=== PATIENT | female | born 1935 | race Caucasian/White ===

== ENCOUNTER 2021-01-28 08:20 | Inpatient (IN) ==
--- NOTE | 2021-01-08 11:01 | PAT Medication Instructions ---
Medication Instructions Date of Service January 08, 2021 Home Medications cholecalciferol (vitamin D3) [Vitamin D3] 50 mcg PO QAM ibuprofen [Motrin] 400 mg PO Q6H PRN levothyroxine 112 mcg PO QAM losartan 50 mg PO QAM multivitamin 1 tab PO QAM pravastatin 40 mg PO HS tramadol 50 mg PO Q4H PRN ASK your surgeon for instructions ibuprofen [Motrin] 400 mg PO Q6H PRN DO NOT take the morning of surgery cholecalciferol (vitamin D3) [Vitamin D3] 50 mcg PO QAM losartan 50 mg PO QAM multivitamin 1 tab PO QAM Take morning of surgery With a small sip of water, OTHERWISE NOTHING TO EAT OR DRINK AFTER MIDNIGHT: levothyroxine 112 mcg PO QAM tramadol 50 mg PO Q4H PRN (if needed, may be taken up to four hours before surgery) Take evening before surgery pravastatin 40 mg PO HS tramadol 50 mg PO Q4H PRN (if needed) Other Notes If you have any questions please call us at [phone] or [phone] or [phone] or [phone]
--- NOTE | 2021-01-11 13:54 | Anesthesiology Consultation ---
Date of Service January 11, 2021 Assessment & Plan (1) Encounter for pre-operative examination: COVID screening: Per assessment on 01/11: Travel screen negative, no known COVID- 19 positive contacts or current COVID-19 related symptoms. Patient fully vaccinated. Surgeon arranging preop COVID testing (scheduled 01/24; [facility]). Awaiting results. Chart Review Chart Review: Acceptable Risk for Surgery and Patient seen in Pre Admission Testing Teaching & Discussion Pre-Anesthesia Teaching/Discussion Notes: Instructed NPO after midnight before surgery,except medications with 15 cc of water. Medication instructions provided according to the PAT guidelines. History Surgery Operation Date: 01/28/21 07:45 Proposed Procedures p L4-L5 Decompression and Fusion, Possible L5-S1, Spinal Cord Monitoring - Tavo Lockwood DO Height/Weight Height: 5 ft 2 in Weight: 72.8 kg Allergies Allergy/AdvReac Type Severity Reaction Status Date / Time codeine AdvReac Unknown "Wild" Verified 01/11/21 13:53 Medications Home Medications Medication Instructions Recorded Confirmed Last Taken cholecalciferol (vitamin D3) 50 mcg PO QAM 01/07/21 01/07/21 Unknown [Vitamin D3] ibuprofen [Motrin] 400 mg PO Q6H PRN 01/07/21 01/07/21 Unknown levothyroxine 112 mcg PO QAM 01/07/21 01/07/21 Unknown losartan 50 mg PO QAM 01/07/21 01/07/21 Unknown multivitamin 1 tab PO QAM 01/07/21 01/07/21 Unknown pravastatin 40 mg PO HS 01/07/21 01/07/21 Unknown tramadol 50 mg PO Q4H PRN 01/07/21 01/07/21 Unknown Past Medical History Medical History Hyperlipidemia Hypertension Hypothyroidism Right kidney mass "Benign" per U/S f/u by PCP Exercise / Class Metabolic Activity II 4-5 Yardwork/Stairs/Walk up hill (one flight of stairs (no chest pain, no sob)) Past Family History Family History Brother Family history of diabetes mellitus Past Surgical History Surgical History History of cholecystectomy History of colonoscopy History of dilatation and curettage History of hysterectomy + RSO History of left oophorectomy History of lung surgery Biopsy (benign) History of surgery Radiofrequency ablation (lumbar region) Hx of foot surgery R/L bunionectomy Past Anesthesia History No Hx of Anesthesia Complications and No Family Hx of Anesthesia Complications History of PONV No Hx of PONV and No Hx of Motion Sickness Social History Smoking Status: Former smoker Do You Dip or Chew Tobacco: No Smoking End Date: Quit 30 years ago Hx Alcohol Use: Yes Alcohol type: wine and other alcohol intake frequency: a few times a month Hx Substance Use: No Review of Systems No snoring. Patient denies chest pain, shortness of breath, dyspnea on exertion, fever, chills, cough, wheezing, palpitations. Physical Exam Vital Signs VITALS BP 148/84 P 70 TEMP 97.4 SP02 98%RA RESP 16 PHYSICAL Full cervical extension range of motion. Full TMJ range of motion. TMD 3 finger breaths Mallampati Score 3 Dentition: upper full dentures Lungs: clear throughout to auscultation Cardiac: regular rate and rhythm, no murmurs noted Spine: normal Carotid arteries: negative bruit Extremities: no edema Lab Results Anesthesia Preop Results Results Anesthesia Widget: WBC 9.08 K/uL (4.8-10.8) 01/11/21 Hgb 13.9 g/dL (12.0-16.0) 01/11/21 Hct 40.9 % (37-47) 01/11/21 Plt 303 K/uL (130-400) 01/11/21 Na 133 mmol/L (136-145) L 01/11/21 K 4.7 mmol/L (3.5-5.1) 01/11/21 Cl 100 mmol/L (98-107) 01/11/21 CO2 26 mmol/L (21-32) 01/11/21 BUN 13 mg/dl (7-18) 01/11/21 Creat 0.60 mg/dl (0.6-1.2) 01/11/21 Glucose Level 101 mg/dl (70-99) H 01/11/21 PT 9.6 Seconds (9.0-12.0) 01/11/21 PTT 29.9 Seconds (21.0-31.0) 01/11/21 INR 0.9 (0.9-1.1) 01/11/21 Urine Color Yellow 01/11/21 Urine Appearance Clear (Clear) 01/11/21 Urine pH 6.5 (4.5-7.5) 01/11/21 Urine Specific Sarah 1.007 (1.000-1.030) 01/11/21 Urine Protein Negative (Negative) 01/11/21 Urine Glucose (UA) Negative (Negative) 01/11/21 Urine Ketones Negative (Negative) 01/11/21 Urine Blood Negative (Negative) 01/11/21 Urine Nitrite Negative (Negative) 01/11/21 Urine Bilirubin Negative (Negative) 01/11/21 Urine Urobilinogen Negative (Negative) 01/11/21 Urine Leukocyte Esterase Negative (Negative) 01/11/21 Blood Type O Positive 01/11/21 Antibody Screen NEGATIVE 01/11/21 Testing Electrocardiogram Date: 01/11/21 Findings: + NSR @ (66) Chest X-Ray Date: 01/11/21 FINDINGS: The heart is the upper limits of normal in size. There is mild aortic tortuosity. There is a thoracolumbar scoliosis. Surgical clips project over the right hilar region. There is mild pulmonary reticulation, possibly chronic. There is no lobar consolidation. There is no overt failure. There are no pleural effusions. IMPRESSION: Mild pulmonary reticulation with a subpleural distribution. This may be chronic. No evidence of lobar consolidation. No cardiopulmonary complaints at PAT visit. Report to be forwarded to PCP for continuity of care.
[~2021-01-28 08:20] MED LIST: ACETAMINOPHEN 500 MG TAB PO SCH; CeleBREX 200 MG CAP PO SCH; GABAPENTIN 300 MG CAP PO SCH; LR 15ML/HR IV SCH; ceFAZolin 1000MG 1,000 MG/7.5 ML SYR IV SCH
[2021-01-28] MEDS ORDERED: ONDANSETRON INJ 2 MG/ML 2 ML VIAL ONE (08:32)
[2021-01-28] MEDS ORDERED: GLYCOPYRROLATE 0.2 MG/ML VIAL ONE (08:32)
[2021-01-28] MEDS ORDERED: LIDOCAINE 2% 2 ML VIAL/AMP(20MG/ML) INFIL ONE (08:32)
[2021-01-28] MEDS ORDERED: DEXAMETHASONE SOD INJ 4 MG/ML VIAL ONE (08:32)
[2021-01-28] MEDS ORDERED: PROPOFOL IV EMULSION 10 MG/ML 20 ML VIAL IV ONE (08:32)
[2021-01-28] MEDS ORDERED: fentaNYL citrate 100 MCG/2 ML VIAL ONE (08:32)
[2021-01-28] MEDS ORDERED: NEOSTIGMINE METHYLSULFATE 1 MG/ML 10ML VIAL ONE (08:32)
[2021-01-28] MEDS ORDERED: ePHEDrine sulfate 50 MG/ML AMP IV PRN (09:41)
[2021-01-28] MEDS ORDERED: PROMETHAZINE HCL 6.25 MG in SODIUM CHLORIDE 0.9% 50 ML IV PRN (09:41)
[2021-01-28] MEDS ORDERED: ONDANSETRON INJ 2 MG/ML 2 ML VIAL IV PRN ×2 (09:41→13:33)
[2021-01-28] MEDS ORDERED: ATROPINE SULFATE 0.1 MG/ML 10ML SYR IV PRN (09:41)
[2021-01-28] MEDS ORDERED: HYDROmorphone INJ 1 MG/ML SYRINGE IV PRN ×2 (09:41→13:33)
--- NOTE | 2021-01-28 09:42 | History & Physical Bridge Note ---
Date of Service January 28, 2021 History & Physical Bridge Note I have examined the patient, reviewed the History & Physical and in the interval since the performance of the History & Physical I have noted the following changes of clinical significance: no changes noted
--- NOTE | 2021-01-28 09:43 | History & Physical Report ---
Date of Service January 28, 2021 Assessment & Plan (1) Neurogenic claudication due to lumbar spinal stenosis: Admission and Anticipated Discharge Date Admission Date: L4-L5 decompression fusion, possible L5-S1 History of Present Illness Chief Complaint: Back and bilateral leg pain Primary Care Provider: Sandra Schwartz This is an 85-year-old female who presents with worsening back and bilateral leg pain. After failing course of nonoperative care she is here for surgical prevention. Allergies Allergy/AdvReac Type Severity Reaction Status Date / Time codeine AdvReac Unknown "Wild" Verified 01/28/21 08:39 Home Medications Medication Instructions Recorded Confirmed Type cholecalciferol (vitamin D3) 50 mcg PO QAM 01/07/21 01/28/21 History [Vitamin D3] ibuprofen [Motrin] 400 mg PO Q6H PRN 01/07/21 01/28/21 History levothyroxine 112 mcg PO QAM 01/07/21 01/28/21 History losartan 50 mg PO QAM 01/07/21 01/28/21 History multivitamin 1 tab PO QAM 01/07/21 01/28/21 History pravastatin 40 mg PO HS 01/07/21 01/28/21 History tramadol 50 mg PO Q4H PRN 01/07/21 01/28/21 History Past Med/Surg History Medical History Hyperlipidemia Hypertension Hypothyroidism Right kidney mass "Benign" per U/S f/u by PCP Surgical History History of cholecystectomy History of colonoscopy History of dilatation and curettage History of hysterectomy + RSO History of left oophorectomy History of lung surgery Biopsy (benign) History of surgery Radiofrequency ablation (lumbar region) Hx of foot surgery R/L bunionectomy Family History Brother Family history of diabetes mellitus Social History Smoking Status: Former smoker Smoking End Date: Quit 30 years ago; Second Hand Exposure: No; Do You Dip or Chew Tobacco: No; Hx Alcohol Use: Yes Alcohol type: wine and other Hx Substance Use: No Preferred Language: Kinyarwanda Communication Ability: Effective Head Charger Required: No Beliefs That Will Affect Care: None Current Living Situation: Spouse current occupational status: retired current occupation: RETIRED RN Other Information That Helps Us Care for You: No Feels Safe at Home: Yes Safety Concerns: Feels Safe At This Time Assistive Devices: Denture - Upper and Glasses Physical Exam Physical Exam: Patient is alert and oriented Heart regular in rhythm Lungs clear to auscultation Results & Data ([facility]) Vital Signs (Past 12 Hours) Vital Signs Temp Pulse Resp BP Pulse Ox 01/28/21 08:45 37.1 C 77 18 183/95 H 98
[2021-01-28] MEDS ORDERED: BUPIVACAINE/EPINEPHRINE 0.5% MPF 1:200,000 30 ML VIAL ONE (09:59)
[2021-01-28] MEDS ORDERED: FLOSEAL HEMOSTATIC MATRIX 10ML TOP ONE ×2 (11:12→12:05)
[2021-01-28] MEDS ORDERED: ROCURONIUM BROMIDE 10 MG/ML 5 ML VIAL IV ONE (11:52)
--- NOTE | 2021-01-28 12:09 | Operative Report ---
Post Operative Report Pre & Post Diagnosis Operation Date: 01/28/21 10:05 Pre-Op Diagnosis: Neurogenic claudication due to lumbar spinal stenosis L4-L5, L5-S1 Post-Op Diagnosis: Neurogenic claudication due to lumbar spinal stenosis L4-L5, L5-S1 I identified the patient and participated in the time-out.: Yes Procedure Operation Date: 01/28/21 10:05 Actual Procedures #1 lumbar decompression with bilateral medial facetectomies and foraminotomies L3-4 L4-5. #2 posterior spinal fusion L4-L5. #3 placement posterior instrumentation L4-5. #4 interbody fusion L4-L5. #5 placement peek cage 8 x 22 mm at L4-5. #6 placement locally harvested morselized autograft in the posterior gutters. #7 placement infuse collagen sponge, and master graft in the posterior gutters and I factor in the interbody space. Surgeon Tavo Lockwood, Fire Lookout Ana Maria Argueta Estimated Blood Loss 100 Findings Consistent with Post-Op Diagnosis Specimens None Indications This is an 85-year-old female who presents with above-mentioned diagnosis after failing course of nonoperative care she is here for the above-mentioned procedure. Description of Procedure Patient met with identified informed consent obtained. Patient was then taken to the operative suite underwent a patient placed in a prone position the [place] table top Salvatore frame. All bony prominences well-padded eyes inspected to ensure no external pressure placed upon the. This point the lumbar spine was prepped and draped in a sterile fashion. Sharp dissection with the assistance of Bovie cautery performed down to and exposing the lamina and transverse processes of L4 and L5. From caudal cephalad fashion complete laminectomy L4 partial laminectomy L3 was performed including bilateral medial facetectomies and foraminotomies addressing severe spinal stenosis. Pedicle screws were then placed in L4 and L5 bilaterally with assistance of fluoroscopy and appropriately sized natanael placed by way of a transforaminal portion right complete discectomy of L4-5 was performed endplates curetted to subcortical being bone and a 8 x 22 mm peek cage filled with I factor tapped in position. The rods were then locked in final position bilaterally. The transverse processes of L4 and L5 burred to subcortical bleeding bone. Infuse collagen sponge master graft and local autograft was placed in the posterior gutters. 15 round JONATHON drain inserted. The incision was then closed with 1 Vicryl the fascia 2-0 Vicryl subcutaneously and 4 Monocryl for final skin closure. Steri-Strip sterile dressings placed. Patient will continue PACU stable condition. Please note spinal cord monitoring was utilized at the procedure no changes noted. Lastly Ana Maria Argueta was present at the entire surgery involved the patient positioning complex portions of the surgery and final skin closure. Lastly spinal cord monitoring was utilized at the procedure no changes noted. I attest to the content of the Intraoperative Record and any orders documented therein. Any exceptions are noted below.
[2021-01-28] MEDS ORDERED: ePHEDrine sulfate 50 MG/ML SYR ONE (12:26)
[2021-01-28] MEDS ORDERED: PHENYLEPHRINE 100MCG/ML 5ML SYR ONE (12:26)
[2021-01-28] MEDS: fentaNYL citrate 100 MCG/2 ML VIAL IV PRN ×4 (12:27→12:42)
--- NOTE | 2021-01-28 12:39 | Anesthesiology Progress Note ---
Date of Service January 28, 2021 Anesthesia Post Procedure Vital Signs Vital Signs: Temp Pulse Pulse Resp BP Pulse Ox 01/28/21 12:21 36.7 C 90 19 148/96 H 100 01/28/21 08:45 37.1 C 77 18 183/95 H 98 Pain Intensity Left Lower Back: Pain Intensity: 7 Transfer of Care Handoff Completed per policy Notes Mental Status: alert / awake / arousable Patient Amnestic to Procedure: Yes Nausea / Vomiting: adequately controlled Pain: adequately controlled Airway Patency, RR, SpO2: stable & adequate BP & HR: stable & adequate Hydration State: stable & adequate Anesthetic Complications: no major complications apparent
--- NOTE | 2021-01-28 12:48 | Fluoroscopy Report ---
FL lumbar spine 2-3V CLINICAL HISTORY: L4-L5 DECOMP/FUSION COMPARISON STUDY: None. FLUOROSCOPY TIME: 19 seconds. FLUOROSCOPIC IMAGES: 2 FINDINGS: Fluoroscopy was provided during the L4-L5 discectomy with interbody spacer placement. Poste rior decompression is noted with bilateral pedicle screw fusion at L4 and L5. IMPRESSION: Fluoroscopy provided during L4-L5 discectomy, posterior decompression and bilateral pedi rossy screw fusion. ACT 112: Negative or not required by law. Electronically signed by: Tab Oliva M.D. 01/28/2021 12:47 PM
[2021-01-28] MEDS ORDERED: ALUMINUM/MAGNESIUM SUSP 30 ML UDC PO PRN (13:33)
[2021-01-28] MEDS ORDERED: ACETAMINOPHEN 500 MG TAB PO PRN (13:33)
[2021-01-28] MEDS ORDERED: FAMOTIDINE 20 MG TAB PO PRN (13:33)
[2021-01-28] MEDS ORDERED: MAGNESIUM HYDROXIDE SUSP 30 ML UDC PO PRN (13:33)
[2021-01-28] MEDS ORDERED: SOD PHOSPHATE/SOD BIPHOSPHATE ENEMA 132 ML BTL PR PRN (13:33)
[2021-01-28] MEDS ORDERED: LORazepam 0.5 MG/1 ML VIAL IV PRN (13:33)
[2021-01-28] MEDS ORDERED: NALOXONE HCL 0.4 MG/1 ML VIAL/CARP IV PRN (13:33)
[2021-01-28] MEDS ORDERED: LORazepam 0.5 MG TAB PO PRN (13:33)
[2021-01-28] MEDS ORDERED: diphenhydrAMINE Capsule 25 MG CAP PO PRN (13:33)
[2021-01-28] MEDS ORDERED: HYDROmorphone INJ 0.5 MG/0.5 ML SYR IV PRN (13:33)
[2021-01-28] MEDS ORDERED: ACETAMINOPHEN 1,000 MG/100 ML VIAL IV PRN (13:33)
[2021-01-28] MEDS ORDERED: DO NOT ADMINISTER FLU VACCINE PRN (13:33)
[2021-01-28] MEDS ORDERED: PROMETHAZINE HCL 12.5 MG in SODIUM CHLORIDE 0.9% 50 ML IV PRN (13:33)
[2021-01-28] MEDS ORDERED: hydrOXYzine HCl 25 MG TAB PO PRN (13:33)
[2021-01-28] MEDS ORDERED: METOCLOPRAMIDE HCL INJ 5 MG/ML 2 ML VIAL IV PRN (13:33)
[2021-01-28] MEDS ORDERED: DO NOT ADMINISTER PNEUMOCOCCAL VACCINE PRN (13:33)
[2021-01-28] MEDS: SODIUM CHLORIDE 0.9% 1000ML 1,000 ML IV SCH (14:29)
[2021-01-28] MEDS: oxyCODONE HCL IR 5 MG TAB (IMMEDIATE RELEASE) PO PRN (16:23)
--- NOTE | 2021-01-28 16:27 | Hospitalist Consultation ---
Date of Consultation January 28, 2021 Assessment & Plan (1) Neurogenic claudication due to lumbar spinal stenosis: - POD#0 L4-L5 decompression and fusion by Dr. Lockwood - activity and wound care orders as per ortho - pain control with bowel regimen - PT/OT - monitor H/H for acute blood loss anemia and transfuse blood products PRN -EBL 100 cc (2) Hypertension: -BP controlled, continue losartan (3) Hypothyroidism: -Continue levothyroxine (4) Hyperlipidemia: -Continue statin (5) DVT prophylaxis: -Teds/SCDs as per spine Ortho Thank you for this consultation. We will follow the patient with you during their hospital stay. You can reach a member of the [facility]ist Team 09/03 via the [facility] role in [place] [employer]. Supervising Physician Co-Signing Physician Notes History and physical exam performed by me as detailed by Sherley ROD 85-year-old female with PMH HTN, hypothyroidism, hyperlipidemia who is status post L4-L5 decompression and fusion today by Dr. Lockwood Patient reports only surgical site pain at this time Had some nausea earlier but currently resolved No abdominal pain. Yet to pass flatus or move bowel. Physical exam notable for elderly woman in no distress, Drain in place with serosanguinous drain at surgical site. - Neurogenic claudication due to lumbar spinal stenosis L4-L5, L5-S1 S/P Lumbar decompression L3-4, L4-5 Check Hb in AM Pain control and activity per Primary Surgeon Keep deshpande overnight Resume home losartan in AM Continue levothyroxine Agree with other plans as detailed by Sherley ROD History of Present Illness Reason for Consultation: Postop medical management Requesting Physician: Dr. Lockwood Attending Physician: Dr. Patrick History of Present Illness 85-year-old female with PMH HTN, hypothyroidism, hyperlipidemia, other problems listed below who is status post L4-L5 decompression and fusion today by Dr. Lockwood. Postoperatively, the patient is doing well. She reports the pain is well controlled. She denies numbness, tingling, weakness to lower extremities. No chest pain or shortness of breath. Denies lightheadedness and dizziness. Reports some mild nausea however no abdominal pain or vomiting. Deshpande catheter is in place draining clear yellow urine. Allergies Allergy/AdvReac Type Severity Reaction Status Date / Time codeine AdvReac Unknown "Wild" Verified 01/28/21 08:39 Home Medications Medication Instructions Recorded Confirmed Type cholecalciferol (vitamin D3) 50 mcg PO QAM 01/07/21 01/28/21 History [Vitamin D3] ibuprofen [Motrin] 400 mg PO Q6H PRN 01/07/21 01/28/21 History levothyroxine 112 mcg PO QAM 01/07/21 01/28/21 History losartan 50 mg PO QAM 01/07/21 01/28/21 History multivitamin 1 tab PO QAM 01/07/21 01/28/21 History pravastatin 40 mg PO HS 01/07/21 01/28/21 History tramadol 50 mg PO Q4H PRN 01/07/21 01/28/21 History Patient History Medical History Hyperlipidemia Hypertension Hypothyroidism Right kidney mass "Benign" per U/S f/u by PCP Surgical History History of cholecystectomy History of colonoscopy History of dilatation and curettage History of hysterectomy + RSO History of left oophorectomy History of lung surgery Biopsy (benign) History of surgery Radiofrequency ablation (lumbar region) Hx of foot surgery R/L bunionectomy Family History Brother Family history of diabetes mellitus Social History Smoking Status: Former smoker Smoking End Date: Quit 30 years ago; Second Hand Exposure: No; Do You Dip or Chew Tobacco: No; Hx Alcohol Use: Yes Alcohol type: wine and other Hx Substance Use: No Preferred Language: Bulgarian Communication Ability: Effective Building Custodian Required: No Beliefs That Will Affect Care: None Current Living Situation: Spouse current occupational status: retired current occupation: RETIRED RN Other Information That Helps Us Care for You: No Feels Safe at Home: Yes Safety Concerns: Feels Safe At This Time Assistive Devices: Walker Review of Systems Review of Systems: ROS per HPI, all other systems reviewed and negative Physical Exam Constitutional: WD/WN, vitals as above Eyes: PERRL, conjunctivae normal, anicteric sclerae ENMT: external ear and nose normal, oropharynx normal Respiratory: normal respiratory effort, lungs clear to auscultation Cardiovascular: Rate/Rhythm: regular rate and regular rhythm Vessels: normal peripheral pulses Extremities: no edema Gastrointestinal (Abdomen): normal bowel sounds, soft, nontender, no hepatosplenomegaly Musculoskeletal: no cyanosis or clubbing, extremities motor strength 5/5 S/p back surgery, pedal pushes and pulls strong bilaterally, drain in place draining bloody drainage Skin: no rashes, warm and dry Neurologic: PERRL, EOMI, accommodation nl, no face palsy, no dysarthria Psychiatric: A+Ox3, euthymic affect Results & Data Results & Data ([facility]) Vital Signs (Past 12 Hours) Vital Signs Temp Pulse Pulse Pulse Resp BP Pulse Ox 01/28/21 16:17 36.3 C L 82 18 118/74 95 01/28/21 15:18 36.3 C L 78 16 108/82 98 01/28/21 14:30 36.3 C L 70 16 122/76 100 01/28/21 13:40 36.5 C 64 16 119/72 98 01/28/21 13:35 36.4 C L 55 L 16 121/72 2 L 01/28/21 13:00 36.2 C L 56 L 19 117/62 96 01/28/21 12:50 57 L 12 122/65 97 01/28/21 12:40 58 L 17 125/66 99 01/28/21 12:30 67 18 128/73 100 01/28/21 12:21 36.7 C 90 19 148/96 H 100 01/28/21 08:45 37.1 C 77 18 183/95 H 98
[2021-01-28] MEDS: ceFAZolin 1000MG 1,000 MG/7.5 ML SYR IV SCH (17:16)
[2021-01-28] MEDS: DOCUSATE SODIUM/SENNA 50/8.6MG TAB PO SCH (21:42)
[2021-01-28] MEDS: PRAVASTATIN SOD 40 MG TAB PO SCH (21:42)
[2021-01-29] MEDS: SODIUM CHLORIDE 0.9% 1000ML 1,000 ML IV SCH (00:46)
[2021-01-29] MEDS: oxyCODONE HCL IR 5 MG TAB (IMMEDIATE RELEASE) PO PRN ×2 (00:47→18:38)
[2021-01-29] MEDS: ceFAZolin 1000MG 1,000 MG/7.5 ML SYR IV SCH (02:17)
[2021-01-29 06:08] LABS: Basophils # (auto) 0.01 K/uL (0-0.2); Basophils % (auto) 0.1 %; Eosinophils # (auto) 0.02 K/uL (0-0.5); Eosinophils % (auto) 0.1 %; Hematocrit (blood only) 32.9 % (37-47); Immature Granulocytes # (auto) 0.05 K/uL (0.00-0.02); Immature Granulocytes % (auto) 0.4 %; Lymphocytes % (auto) 12.1 %; Mean Corpuscular Hemoglobin 28.1 pg (25-34); Mean Corpuscular Hgb Conc 33.4 g/dL (32-36); Mean Corpuscular Volume 84.1 fL (80-100); Mean Platelet Volume 9.5 fL (7.4-10.4); Monocytes # (auto) 1.66 K/uL (0.11-0.59); Monocytes % (auto) 11.9 %; Neutrophils # (auto) 10.56 K/uL (1.4-6.5); Neutrophils % (auto) 75.4 %; Platelet Count 235 K/uL (130-400); RDW Coefficient of Variation 13.5 % (11.5-14.5); Red Blood Count 3.91 M/uL (4.2-5.4)
[2021-01-29] MEDS: LEVOTHYROXINE SODIUM 112 MCG TABLET PO SCH (06:11)
[2021-01-29] MEDS: POLYETHYLENE (MIRALAX) 17 GM PACK PO SCH ×4 (06:13→23:59)
[2021-01-29 06:41] LABS: BUN Creatinine Ratio 18.4 (10-20); Calcium 8.1 mg/dl (8.5-10.1); Creatinine Clr Calc Pharmacy 60.2 ml/min; Est GFR (Non-African American) 81.9 ml/min; Potassium 4.4 mmol/L (3.5-5.1)
[2021-01-29] MEDS: ONDANSETRON 4 MG OD TAB PO PRN (07:51)
[2021-01-29] MEDS: CHOLECALCIFEROL 1,000 UNITS 25 MCG TAB PO SCH (08:37)
[2021-01-29] MEDS: LOSARTAN POTASSIUM 50 MG TAB PO SCH (08:38)
[2021-01-29] MEDS: MULTIVITAMIN TAB PO SCH (08:38)
[2021-01-29] MEDS: dexAMETHasone 6 MG in SYRINGE 0 ML IV SCH (10:30)
--- NOTE | 2021-01-29 11:30 | Hospitalist Progress Note ---
Date of Service January 29, 2021 Assessment & Plan (1) Neurogenic claudication due to lumbar spinal stenosis: Neurogenic claudication due to lumbar spinal stenosis L4-L5, L5-S1 S/P Lumbar decompression L3-4, L4-5 Pain control and activity per Primary Surgeon Remove Bauer Hemoglobin is 11 today [preop was 13.9] this may be related to blood loss anemia versus dilutional. Monitor hemoglobin Leukocytosis today with WBC of 14. This may be reactive. Monitor PT/OT Antiemetic as needed (2) Hypertension: BP elevated this morning Continue losartan (3) Hypothyroidism: Continue levothyroxine (4) Hyperlipidemia: Continue statin (5) DVT prophylaxis: Teds/SCDs Admission and Anticipated Discharge Date Admission Date: January 28, 2021 Subjective 85-year-old female with PMH HTN, hypothyroidism, hyperlipidemia who is status post L4-L5 decompression and fusion by Dr. Lockwood Patient seen and examined. Reports nausea and an episode of vomiting this morning. Denies any abdominal pain. Yet to move bowels. Reports some pain at surgical site but states that this is controlled. Denies other complaints Review of Systems Review of Systems: All systems reviewed & are unremarkable except as noted in Subjective Physical Exam Constitutional: + well hydrated; no acute distress Elderly woman Eyes: PERRL, conjunctivae normal, anicteric sclerae ENMT: external ear and nose normal, oropharynx normal Respiratory: normal respiratory effort, lungs clear to auscultation Cardiovascular: Rate/Rhythm: regular rate and regular rhythm S1-S2 No pedal edema Gastrointestinal (Abdomen): normal bowel sounds, soft, nontender, no hepatosplenomegaly Musculoskeletal: Clean dressing over surgical site Neurologic: PERRL, EOMI, accommodation nl, no face palsy, no dysarthria Psychiatric: A+Ox3, euthymic affect Results & Data Results & Data ([facility]) Vital Signs (Past 12 Hours) Vital Signs Temp Pulse Resp BP Pulse Ox 01/29/21 07:49 109 H 154/89 H 01/29/21 05:59 36.4 C L 67 16 104/62 95 01/29/21 04:45 111/63 Laboratory Results Abnormal lab results 01/29/21 01/29/21 Range/Units 05:42 05:42 WBC 14.00 H (4.8-10.8) K/uL RBC 3.91 L (4.2-5.4) M/uL Hgb 11.0 L (12.0-16.0) g/dL Hct 32.9 L (37-47) % Neut # (Auto) 10.56 H (1.4-6.5) K/uL [place] # (Auto) 1.66 H (0.11-0.59) K/uL Immature Gran # (Auto) 0.05 H (0.00-0.02) K/uL Sodium 134 L (136-145) mmol/L Glucose 111 H (70-99) mg/dl Calcium 8.1 L (8.5-10.1) mg/dl
--- NOTE | 2021-01-29 11:48 | Orthopedic Progress Note ---
Date of Service January 29, 2021 Assessment & Plan (1) Neurogenic claudication due to lumbar spinal stenosis: Admission and Anticipated Discharge Date Admission Date: January 28, 2021 At this time we will continue to advance her antinausea medications and physical therapy. We will assess her progress over the next few days hopefully discharge home. Subjective Patient's back pain is controlled leg pain improved. She is struggling with nausea. Physical Exam Physical Exam: On exam she is in bed she has good strength testing. Results & Data ([facility]) Vital Signs (Past 12 Hours) Vital Signs Temp Pulse Resp BP Pulse Ox 01/29/21 07:49 109 H 154/89 H 01/29/21 05:59 36.4 C L 67 16 104/62 95 01/29/21 04:45 111/63
[2021-01-29] MEDS: DOCUSATE SODIUM/SENNA 50/8.6MG TAB PO SCH (20:02)
[2021-01-29] MEDS: PRAVASTATIN SOD 40 MG TAB PO SCH (20:02)
[2021-01-29] MEDS: traMADol HCL 50 MG TABLET PO PRN (23:53)
[2021-01-30] MEDS: traMADol HCL 50 MG TABLET PO PRN ×2 (05:23→13:34)
[2021-01-30] MEDS: POLYETHYLENE (MIRALAX) 17 GM PACK PO SCH ×2 (05:23→13:34)
[2021-01-30] MEDS: LEVOTHYROXINE SODIUM 112 MCG TABLET PO SCH (05:27)
[2021-01-30 06:18] LABS: Hematocrit (blood only) 33.4 % (37-47); Hemoglobin 10.9 g/dL (12.0-16.0); Mean Corpuscular Hgb Conc 32.6 g/dL (32-36); Mean Corpuscular Volume 85.9 fL (80-100); Mean Platelet Volume 9.9 fL (7.4-10.4); Platelet Count 267 K/uL (130-400); RDW Coefficient of Variation 13.6 % (11.5-14.5); RDW Standard Deviation 43.2 fL (36.4-46.3); Red Blood Count 3.89 M/uL (4.2-5.4); White Blood Count 11.21 K/uL (4.8-10.8)
[2021-01-30] MEDS: dexAMETHasone 6 MG in SYRINGE 0 ML IV SCH (07:26)
[2021-01-30] MEDS: CHOLECALCIFEROL 1,000 UNITS 25 MCG TAB PO SCH (08:48)
[2021-01-30] MEDS: LOSARTAN POTASSIUM 50 MG TAB PO SCH (08:48)
[2021-01-30] MEDS: MULTIVITAMIN TAB PO SCH (08:48)
--- NOTE | 2021-01-30 09:57 | Hospitalist Progress Note ---
Date of Service January 30, 2021 Assessment & Plan (1) Neurogenic claudication due to lumbar spinal stenosis: Neurogenic claudication due to lumbar spinal stenosis L4-L5, L5-S1 S/P Lumbar decompression L3-4, L4-5 Pain control and activity per Primary Surgeon Currently somewhat controlled on Tramadol 100mg PO q4h. Gave her Tylenol 1000mg PO x one dose now. Next Tramadol dose is due in 45 minutes. Cont dexamethasone daily. Advised patient to monitor for constipation. (2) Hypertension: At goal, cont home losartan. (3) Hypothyroidism: Continue levothyroxine per home regimen. (4) Hyperlipidemia: Continue statin per home regimen. (5) DVT prophylaxis: Teds/SCDs Full Code Dispo-per Orthopedics. Thank you for this consultation. Breanna You [facility] and [facility]ticipated Discharge Date Admission Date: January 28, 2021 Subjective 85 yo F POD 2 s/p L4-5 decompression and fusion by Dr. Lockwood. She reports pain is 4/10 after Tramadol started overnight at 100mg dose. She was having nausea last evening which is resolved and was thought secondary to the oxycodone. She agreed to try some additional Tylenol now. She denies nausea, numbess in legs, chest pain, SOB or other issues at this time. Review of Systems Review of Systems: All systems reviewed & are unremarkable except as noted in Subjective Physical Exam Physical Exam: CONSTITUTIONAL: WNWD, vitals as above, generally well- appearing EYES: normal conjunctivae, no scleral icterus ENT: external ear and nose normal, MMM RESPIRATORY: clear to auscultation bilaterally, no crackles, rales or wheezes, normal respiratory effort CARDIOVASCULAR: regular rate and rhythm, S1 and 2 heard without murmurs, gallops or rubs, no JVD, no peripheral edema GASTROINTESTINAL: soft, nontender, nondistended. MUSCULOSKELETAL: strength 5/5 throughout, head is normocephalic and atraumatic SKIN: warm and dry, lower back surgical site is covered with gauze that is c/d/i. Drain in place with serosanguinous/bloody drainage. NEUROLOGIC: CN 2-12 grossly intact, no sensory deficit, normal cognition, normal speech PSYCHIATRIC: alert cooperative and oriented to person, place and time. Results & Data Results & Data ([facility]) Vital Signs (Past 12 Hours) Vital Signs Temp Pulse Resp BP Pulse Ox 01/30/21 07:31 36.4 C L 84 18 133/83 99 01/29/21 22:42 36.6 C 77 16 109/65 97 Laboratory Results Short CBC 01/30/21 Range/Units 05:35 WBC 11.21 H (4.8-10.8) K/uL Hgb 10.9 L (12.0-16.0) g/dL Hct 33.4 L (37-47) % Plt Count 267 (130-400) K/uL Medications Administered Current Inpatient Medications Acetaminophen (Acetaminophen 500 Mg Tab) 1,000 mg PO Q8H PRN PRN Reason: MILD Pain Scale 1,2,3 & Pre PT Stop: 02/27/21 13:32 Last Admin: 01/30/21 08:50 Dose: 1,000 mg Documented by: Al Hydrox/Mg Hydrox/Simethicone (Aluminum/Magnesium Susp 30 Ml Udc) 30 ml PO Q6H PRN PRN Reason: Dyspepsia Stop: 02/27/21 13:32 Bisacodyl (Bisacodyl 10 Mg Supp) 10 mg [place] DAILY PRN PRN Reason: Constipation Stop: 03/01/21 12:09 Diphenhydramine HCl (Diphenhydramine Capsule 25 Mg Cap) 25 mg PO Q6H PRN PRN Reason: Allergic Rhinitis/Insomnia Stop: 02/27/21 13:32 Famotidine (Famotidine 20 Mg Tab) 20 mg PO Q12H PRN PRN Reason: Dyspepsia Stop: 02/27/21 13:32 Last Admin: 01/29/21 08:38 Dose: 20 mg Documented by: Hydromorphone HCl (Hydromorphone Inj 0.5 Mg/0.5 Ml Syr) 0.5 mg IV Q3H PRN PRN Reason: MOD pain (scale 4-6) & Pre PT Stop: 02/11/21 13:32 Hydromorphone HCl (Hydromorphone Inj 1 Mg/Ml Syringe) 1 mg IV Q3H PRN PRN Reason: severe pain (scale 7-10) Stop: 02/11/21 13:32 Last Admin: 01/29/21 03:38 Dose: 1 mg Documented by: Hydroxyzine HCl (Hydroxyzine Hcl 25 Mg Tab) 25 mg PO Q8H PRN PRN Reason: Anxiety Stop: 02/27/21 13:32 Promethazine HCl 12.5 mg/ (Sodium Chloride) 50.5 mls @ 202 mls/hr IV Q6H PRN PRN Reason: Nausea &/or Vomiting Stop: 02/27/21 13:32 Lorazepam (Ativan) 0.5 mg in 1 mls @ 1 mls/min IV Q8H PRN PRN Reason: Sedation/Anxiety Stop: 02/27/21 13:32 Dexamethasone 6 mg/ Syringe 1.5 mls @ 1 mls/min IV DAILY SARAH Stop: 02/28/21 09:59 Last Admin: 01/30/21 07:26 Dose: 1 mls/min Documented by: Influenza Virus Vaccine Quadrival (Do Not Administer Flu Vaccine) 1 ea N/A PRN PRN PRN Reason: Notification Stop: 02/27/21 13:32 Levothyroxine Sodium (Levothyroxine Sodium 112 Mcg Tablet) 112 mcg PO DAILYBB [facility] Stop: 02/28/21 06:29 Last Admin: 01/30/21 05:27 Dose: 112 mcg Documented by: Lorazepam (Lorazepam 0.5 Mg Tab) 0.5 mg PO Q8H PRN PRN Reason: sedation/anxiety Stop: 02/27/21 13:32 Losartan Potassium (Losartan Potassium 50 Mg Tab) 50 mg PO QAM [facility] Stop: 02/28/21 08:59 Last Admin: 01/30/21 08:48 Dose: 50 mg Documented by: Magnesium Hydroxide (Magnesium Hydroxide Susp 30 Ml Udc) 30 ml PO Q24H PRN PRN Reason: Constipation Stop: 02/27/21 13:32 Metoclopramide HCl (Metoclopramide Hcl Inj 5 Mg/Ml 2 Ml Vial) 10 mg IV Q6H PRN PRN Reason: Nausea &/or Vomiting Stop: 02/27/21 13:32 Multivitamins (Multivitamin Tab) 1 tab PO QAM [facility] Stop: 02/28/21 08:59 Last Admin: 01/30/21 08:48 Dose: 1 tab Documented by: Naloxone HCl (Naloxone Hcl 0.4 Mg/1 Ml Vial/Carp) 0.1 mg IV Q5M PRN PRN Reason: Oversedation/respiratory dep Stop: 02/27/21 13:32 Ondansetron HCl (Ondansetron Inj 2 Mg/Ml 2 Ml Vial) 4 mg IV Q6H PRN PRN Reason: Nausea &/or Vomiting Stop: 02/27/21 13:32 Last Admin: 01/28/21 20:12 Dose: 4 mg Documented by: Ondansetron HCl (Ondansetron 4 Mg Od Tab) 4 mg PO Q6H PRN PRN Reason: Nausea Stop: 02/27/21 13:32 Last Admin: 01/29/21 07:51 Dose: 4 mg Documented by: Oxycodone HCl (Oxycodone Hcl Ir 5 Mg Tab (Immediate Release)) 5 - 10 mg PO Q4H PRN PRN Reason: Pain & Pre PT Stop: 02/11/21 13:32 Last Admin: 01/29/21 18:38 Dose: 10 mg Documented by: Pneumococcal Polyvalent Vaccine (Do Not Administer Pneumococcal Vaccine) 1 ea N/A PRN PRN PRN Reason: Notification Stop: 02/27/21 13:32 Polyethylene Glycol (Polyethylene (Miralax) 17 Gm Pack) 17 gm PO Q6 SARAH Stop: 02/28/21 05:59 Last Admin: 01/30/21 05:23 Dose: 17 gm Documented by: Pravastatin Sodium (Pravastatin Sod 40 Mg Tab) 40 mg PO HS [facility] Stop: 02/27/21 20:59 Last Admin: 01/29/21 20:02 Dose: 40 mg Documented by: Senna/Docusate Sodium (Docusate Sodium/Senna 50/8.6mg Tab) 2 tab PO HS [facility] Stop: 02/27/21 20:59 Last Admin: 01/29/21 20:02 Dose: 2 tab Documented by: Sodium Biphosphate/Sodium Phosphate (Sod Phosphate/Sod Biphosphate Enema 132 Ml Btl) 132 ml [place] ONE PRN PRN Reason: Constipation Stop: 02/27/21 13:32 Tramadol HCl (Tramadol Hcl 50 Mg Tablet) 50 - 100 mg PO Q4H PRN PRN Reason: Moderate-Severe pain & Pre PT Stop: 02/27/21 13:32 Last Admin: 01/30/21 05:23 Dose: 100 mg Documented by: Vitamin D (Cholecalciferol 1,000 Units 25 Mcg Tab) 2,000 units PO QAM SARAH Stop: 02/28/21 08:59 Last Admin: 01/30/21 08:48 Dose: 2,000 units Documented by:
[2021-01-30] MEDS ORDERED: bisacodyL 10 MG SUPP PR PRN (12:10)
--- NOTE | 2021-01-30 13:04 | Orthopedic Progress Note ---
Date of Service January 30, 2021 Assessment & Plan (1) Neurogenic claudication due to lumbar spinal stenosis: Admission and Anticipated Discharge Date Admission Date: January 28, 2021 This time we will continue physical therapy monitor JONATHON output possible discharge home tomorrow. Subjective Back pain controlled leg symptoms markedly improved. Nausea improved. Physical Exam Physical Exam: Patient is in the chair at the bedside. Is good strength testing. Appears comfortable. Results & Data ([facility]) Vital Signs (Past 12 Hours) Vital Signs Temp Pulse Resp BP Pulse Ox 01/30/21 07:31 36.4 C L 84 18 133/83 99
[2021-01-30] MEDS: PRAVASTATIN SOD 40 MG TAB PO SCH (20:31)
[2021-01-30] MEDS: DOCUSATE SODIUM/SENNA 50/8.6MG TAB PO SCH (20:31)
[2021-01-30] MEDS: oxyCODONE HCL IR 5 MG TAB (IMMEDIATE RELEASE) PO PRN (22:39)
[2021-01-31] MEDS: oxyCODONE HCL IR 5 MG TAB (IMMEDIATE RELEASE) PO PRN (03:42)
[2021-01-31] MEDS: LEVOTHYROXINE SODIUM 112 MCG TABLET PO SCH (05:31)
[2021-01-31] MEDS: ONDANSETRON 4 MG OD TAB PO PRN (06:31)
[2021-01-31] MEDS: CHOLECALCIFEROL 1,000 UNITS 25 MCG TAB PO SCH (08:16)
[2021-01-31] MEDS: LOSARTAN POTASSIUM 50 MG TAB PO SCH (08:16)
[2021-01-31] MEDS: MULTIVITAMIN TAB PO SCH (08:16)
[2021-01-31] MEDS: dexAMETHasone 6 MG in SYRINGE 0 ML IV SCH (08:16)
--- NOTE | 2021-01-31 09:21 | Discharge Summary ---
Date of Service January 31, 2021 Admission HPI Per Admitting Provider This is an 85-year-old female who presents with worsening back and bilateral leg pain. After failing course of nonoperative care she is here for surgical prevention. Principal Diagnosis Lumbar spinal stenosis with neurogenic claudication Discharge Data Allergies Allergy/AdvReac Type Severity Reaction Status Date / Time codeine AdvReac Unknown "Wild" Verified 01/28/21 08:39 Consultations 01/28/21 13:33 Consult Hospitalist Routine Procedures Performed Operation Date: 01/28/21 10:05 Actual Procedures p L4-L5 Decompression and Fusion, with Spinal Cord Monitoring, with Application of Bone Morphogenetic Protein, Spinal Cord Monitoring, Placement of Interbody (Not Applicable) - Tavo Lockwood DO Ordered Studies 01/28/21 09:47 FL lumbar spine 2-3V Routine Hospital Course (1) Neurogenic claudication due to lumbar spinal stenosis: Patient with lumbar decompression fusion tolerated so was taken to orthopedic for postoperative. Postop day 1 she was up and ambulating progressed to postop day #2 posterior 3 pain was well controlled JONATHON drain decreasing probably. Excellent strength testing. Subsequent discharge home. Discharge orders instructions from the chart for further review. Total Time Total Time Spent Total Time Spent (In Minutes): 20 minutes Discharge Plan Discharge Items Patient Disposition: Home - Self-Care Reason For Visit: Spinal Stenosis, Lumbar Region with Neurogenic Cla Discharge Diagnosis: Lumbar spinal stenosis with neurogenic claudication Activity: As commented below Non-emergency contact: Primary Care Provider Call non-emergency contact if: you have any medication questions Follow-up/Referrals: Sandra Schwartz PA-C [Primary Care Provider] - Diet: Regular Addtl Attending Provider Instructions: ACTIVITY RECOMMENDATIONS: SELF CARE INSTRUCTIONS AFTER THORACIC/LUMBAR FUSIONS 1. You may walk to your tolerance. It is good exercise for your legs and back. Expect some back and intermittent leg aches and pains. 2. You may perform "counter-top" level activities (make a sandwich, alexander with a project, etc.). 3. No bending or lifting of more than 10 pounds or back twisting of any nature (roll like a log when turning in bed). 4. You may ride in a car for 20-30 minutes at a time. No driving until after your first visit with your doctor. 5. Frequent changes of position and restricting sitting to 30 minutes at a time will help limit the amount of back spasms and stiffness you may experience. 6. You may discontinue the use of ambulatory aids (cane, crutches, etc.) once your strength and confidence allow. 7. You may crewman main battle tank the shower and let water strike your incision when you arrive home at least once daily. Do not take a tub bath, sit in a hot tub or go into a swimming pool until after your first recheck in the office. SPECIAL CARE INSTRUCTIONS: VERY IMPORTANT TO READ AND REVIEW A. Your surgical incision has been closed with a cosmetic suture under the skin that will dissolve in about 6 weeks. In 14 days, you can use a pair of clean scissors and cut the suture that is left outside of the skin at the ends of your incision. 1. The small skin tapes can be removed 7 days after surgery if they have not fallen off by that point. 2. You may keep the wound open to air as much as possible to promote healing after post-op day number 5 unless told otherwise by your doctor. 3. If you think the wound looks like it is becoming infected (redness or worsening drainage) and/or you are experiencing fever, chill or worsening back pain and muscle spasms, contact the office so that we may evaluate you as soon as possible. B. Complications are uncommon, but please contact us if you have any signs or symptoms of: 1. wound infection (fever higher than 102.5 degrees F, redness, separation of wound, drainage, or increasing pain from the incision) 2. blood clots in legs (pain, swelling, redness and warmth in legs) 3. urinary tract infection (fever higher than 102.5 degrees F, burning upon urination or increased frequency of urination) 4. nerve problems (inability to walk on your toes or heels, numbness, loss of bowel or bladder control) 5. any other symptoms that concern you C. Please call the office at if you have any concerns or questions about your operation or recovery. D. No smoking! Smoking drastically decreases the chance of a solid fusion. E. Do not take any anti-inflammatory medications (Indocin, Advil, Motrin, Aspirin, Naprosyn, etc.) as these may inhibit the chance of a solid fusion. Tylenol is okay to take for pain. MANAGING PAIN AFTER SPINAL SURGERY 1. Narcotic medication is intended for short-term use and will be provided for surgical pain. Surgical pain usually lasts for a period of 4-6 weeks. Narcotic medication includes Percocet, Vicodin, Darvocet, Tylenol #3 or Lortab. 2. Longer-term pain is more appropriately treated with non-narcotic medication such as Tylenol ES. 3. Muscle spasm is not appropriately treated with narcotics. Muscle relaxers such as Soma, Flexeril or Skelaxin can be used along with Tylenol ES. 4. Remember that we all live with some "aches and pains". This is not unusual or uncommon after an injury or as we get older. a. Back pain is expected and may include muscle spasms for 4 to 6 weeks after surgery. The pain should gradually improve. If the pain worsens for no apparent reason, please contact the office. b. Intermittent leg pain may also be experienced and should not be concerned about unless it worsens for no apparent reason. If so, please contact the office. 5. We will provide appropriate medication within the normal guidelines of their prescribed use. We will also be very cautious and aware of potential abuse and extended duration of patients' medication needs. a. Pain medications are for your comfort and to assist with sleep and rest so that the tissue can heal. They are not provided in order to return to normal activity and should not be used through the day. To do so or worsening pain at night can result from ongoing tissue damage and development of tolerance to the prescribed medicine. 6. Please allow 2-3 days to process refills. Prescriptions will not be mailed but must be picked up at the office. FOLLOW UP VISIT: Keep your scheduled follow-up appointment. Any questions, please call the office at . Pending Studies at Discharge: No Stand-Alone Forms: My [facility] Tiny Pictures, Smoking Cessation Medications and DC Order Prescriptions: New tramadol 50 mg tablet 50 mg PO Q6H PRN (Reason: pain, moderate) Qty: 30 RF: 0 Continued multivitamin Tablet 1 tab PO QAM RF: 0 losartan 50 mg Tablet 50 mg PO QAM RF: 0 pravastatin 40 mg Tablet 40 mg PO HS RF: 0 ibuprofen 100 mg Tablet 400 mg PO Q6H PRN (Reason: Pain) RF: 0 cholecalciferol (vitamin D3) [Vitamin D3] 50 mcg (2,000 unit) Capsule 50 mcg PO QAM RF: 0 levothyroxine 112 mcg Capsule 112 mcg PO QAM RF: 0 tramadol 50 mg Tablet 50 mg PO Q4H PRN (Reason: Pain) RF: 0 Discharge Orders: Discharge Order (Routine); Ordered 01/31/21 Ordered By: Tavo Lockwood Admission Data Admit Date/Time: 01/28/21 12:19 Attending Provider: Tavo Lockwood Admit Provider: Tavo Lockwood Primary Care Provider: Sandra Schwartz Other Providers: Breanna You
[2021-01-31] MEDS: traMADol HCL 50 MG TABLET PO PRN (11:54)
== END 2021-01-31 12:07 | disposition home or self-care (01) | DRG 455 ==
LOC: ASU 08:20 → 3E 12:19

== ENCOUNTER 2021-12-20 09:18 | Inpatient (IN) ==
--- NOTE | 2021-11-19 16:18 | PAT Medication Instructions ---
Medication Instructions Date of Service November 19, 2021 Home Medications cholecalciferol (vitamin D3) 50 mcg (2,000 unit) capsule (Vitamin D3) 50 mcg PO QAM levothyroxine 112 mcg capsule 112 mcg PO QAM multivitamin 1 tab PO QAM ibuprofen 200 mg tablet 200 mg PO Q6H PRN losartan 100 mg tablet 100 mg PO HS omega-3 fatty acids 1,000 mg PO QAM pravastatin 20 mg tablet 20 mg PO HS ASK your surgeon for instructions ibuprofen 200 mg tablet 200 mg PO Q6H PRN STOP taking 2 weeks before surgery (or as soon as possible if surgery is within 2 weeks) omega-3 fatty acids 1,000 mg PO QAM DO NOT take the morning of surgery cholecalciferol (vitamin D3) 50 mcg (2,000 unit) capsule (Vitamin D3) 50 mcg PO QAM multivitamin 1 tab PO QAM Take morning of surgery With a small sip of water, OTHERWISE NOTHING TO EAT OR DRINK AFTER MIDNIGHT: levothyroxine 112 mcg capsule 112 mcg PO QAM Take evening before surgery losartan 100 mg tablet 100 mg PO HS pravastatin 20 mg tablet 20 mg PO HS Other Notes If you have any questions please call us at [phone] or [phone] or [phone] or [phone]
--- NOTE | 2021-11-21 11:51 | Anesthesiology Consultation ---
Date of Service November 21, 2021 Assessment & Plan (1) Encounter for pre-operative examination: Chart Review Chart Review: Acceptable Risk for Surgery (pending surgeon ordered PCP clearance scheduled 12/05/21 and preop Covid testing results ) and Patient seen in Pre Admission Testing - Awaiting PCP clearance scheudled 12/05/21 Per PAT appt on 11/21/21, patient denies any recent travel or large group activities. No known Covid positive exposures or Covid related symptoms. No known Covid infection in the past 90 days. Pt is vaccinated for Covid. Preop Covid testing scheduled 12/18/21 = will await results. Educated on importance of self quarantining, social distancing and wearing mask in public for the patient one week prior to surgery and after Covid testing done L4-5 decompression and fusion 01/28/21= Done under GA with Grade 2 view with MAC #3. DLx1. Atraumatic Teaching & Discussion Pre-Anesthesia Teaching/Discussion Notes: Instructed NPO after midnight before surgery,except medications with 15 cc of water. Medication instructions provided according to the PAT guidelines. History Surgery Operation Date: 12/20/21 09:25 Proposed Procedures p Left Ankle Fusion with Autograft - Zain Nesbitt DO s Left Distal Tibula Autograft [place], Percutaneous Tendon Achilles Lengthening - Zain Nesbitt DO Height/Weight Height: 5 ft 2 in Weight: 72.9 kg Allergies Allergy/AdvReac Type Severity Reaction Status Date / Time No Known Allergies Allergy Verified 11/18/21 11:25 Medications Home Medications Medication Instructions Recorded Confirmed Last Taken cholecalciferol (vitamin D3) 50 50 mcg PO QAM 01/07/21 11/18/21 01/27/21 07:00 mcg (2,000 unit) capsule (Vitamin D3) levothyroxine 112 mcg capsule 112 mcg PO QAM 01/07/21 11/18/21 01/28/21 07:00 multivitamin 1 tab PO QAM 01/07/21 11/18/21 01/27/21 07:00 ibuprofen 200 mg tablet 200 mg PO Q6H PRN 11/18/21 11/18/21 Unknown losartan 100 mg tablet 100 mg PO HS 11/18/21 11/18/21 Unknown omega-3 fatty acids 1,000 mg PO QAM 11/18/21 11/18/21 Unknown pravastatin 20 mg tablet 20 mg PO HS 11/18/21 11/18/21 Unknown Past Medical History Medical History Arthritis Hyperlipidemia Hypertension Hypothyroidism Right kidney mass "Benign" per serial U/S f/u by PCP Exercise / Class Metabolic Activity II 4-5 Yardwork/Stairs/Walk up hill (one flight of stairs - no chest pain or SOB ) Past Family History Family History Brother Family history of diabetes mellitus Other No family history of adverse response to anesthesia Past Surgical History Surgical History Fusion of spine LUMBAR FUSION History of cholecystectomy History of colonoscopy History of dilatation and curettage History of hysterectomy + RSO History of left oophorectomy History of lung surgery Biopsy (benign) *WENT THRU BACK FOR BIOPSY History of surgery Radiofrequency ablation (lumbar region) Hx of foot surgery R/L bunionectomy Past Anesthesia History No Hx of Anesthesia Complications and No Family Hx of Anesthesia Complications History of PONV No Hx of PONV and No Hx of Motion Sickness Social History Smoking Status: Former smoker tobacco type: cigarettes Do You Dip or Chew Tobacco: No Smoking End Date: 30 YEARS AGO Hx Alcohol Use: Yes Alcohol type: wine alcohol intake frequency: a few times a month Hx Substance Use: No Review of Systems Hx of snoring- no witnessed apnea- no hx of sleep study Patient denies chest pain, shortness of breath, dyspnea on exertion, reflux, cough, wheezing, palpitations. No hx of seizures, stroke, [place]. No hx of blood clots or blood transfusions Physical Exam Vital Signs VITALS BP 160/82 (manual- usually well controlled- checks daily at home- seeing PCP prior to surgery) P 68 TEMP 97.9 SP02 97% RESP 16 Constitutional no acute distress ENMT Mouth: no TMJ clicking Thyromental Distance: < 3.5 Finger Breadths (3.0) Mallampati Class: III Neck + limited neck extension (moderate to severe ) Respiratory normal respiratory effort; no respiratory distress Auscultation: lungs clear to auscultation bilaterally; no wheezes Cardiovascular Rate/Rhythm: regular rate and regular rhythm Heart Sounds: no murmur Vessels: no carotid bruit Musculoskeletal Spine: no pain with cervical ROM Extremities: extremities normal to inspection Psychiatric Orientation: alert Lab Results Anesthesia Preop Results Results Anesthesia Widget: WBC 9.54 K/uL (4.8-10.8) 11/21/21 Hgb 13.8 g/dL (12.0-16.0) 11/21/21 Hct 39.5 % (37-47) 11/21/21 Plt 287 K/uL (130-400) 11/21/21 Na 135 mmol/L (136-145) L 11/21/21 K 4.1 mmol/L (3.5-5.1) 11/21/21 Cl 103 mmol/L (98-107) 11/21/21 CO2 23 mmol/L (21-32) 11/21/21 BUN 13 mg/dl (6-23) 11/21/21 Creat 0.59 mg/dl (0.6-1.2) L 11/21/21 Glucose Level 91 mg/dl (70-99(Fasting)) 11/21/21 PT 10.3 Seconds (9.0-12.0) 11/21/21 PTT 30.8 Seconds (21.0-31.0) 11/21/21 INR 1.0 (0.9-1.1) 11/21/21 Testing Electrocardiogram Date: 11/21/21 Findings: + NSR @ (69bpm ) Normal EKG per cardio. Chest X-Ray Date: 11/21/21 Findings: + NAD
--- NOTE | 2021-12-18 15:55 | History & Physical Report ---
Date of Service December 18, 2021 Assessment & Plan (1) Osteoarthritis of ankle, left: Plan: Schedule a left ankle fusion with autograft, distal fibula autograft harvest, percutaneous tendo Achilles lengthening for 12/20/2021. All potential risks, benefits, complications, alternatives, and rehab were discussed with the patient. The patient wishes to proceed with the surgery as indicated. Aspirin 81 mg twice daily x4 weeks postop for DVT prophylaxis. (2) Contracture of left Achilles tendon: History of Present Illness Chief Complaint: Left ankle pain Primary Care Provider: Sandra Schwartz This is a patient with a long history of left ankle pain. She has been treated conservatively for left ankle osteoarthritis. She had failed all conservative management. She is now being set up for surgical treatment. Allergies Allergy/AdvReac Type Severity Reaction Status Date / Time No Known Allergies Allergy Verified 11/18/21 11:25 Home Medications Medication Instructions Recorded Confirmed Type cholecalciferol (vitamin D3) 50 50 mcg PO QAM 01/07/21 11/18/21 History mcg (2,000 unit) capsule (Vitamin D3) levothyroxine 112 mcg capsule 112 mcg PO QAM 01/07/21 11/18/21 History multivitamin 1 tab PO QAM 01/07/21 11/18/21 History ibuprofen 200 mg tablet 200 mg PO Q6H PRN 11/18/21 11/18/21 History losartan 100 mg tablet 100 mg PO HS 11/18/21 11/18/21 History omega-3 fatty acids 1,000 mg PO QAM 11/18/21 11/18/21 History pravastatin 20 mg tablet 20 mg PO HS 11/18/21 11/18/21 History Past Med/Surg History Medical History Arthritis Hyperlipidemia Hypertension Hypothyroidism Right kidney mass "Benign" per serial U/S f/u by PCP Surgical History Fusion of spine LUMBAR FUSION History of cholecystectomy History of colonoscopy History of dilatation and curettage History of hysterectomy + RSO History of left oophorectomy History of lung surgery Biopsy (benign) *WENT THRU BACK FOR BIOPSY History of surgery Radiofrequency ablation (lumbar region) Hx of foot surgery R/L bunionectomy Family History Brother Family history of diabetes mellitus Other No family history of adverse response to anesthesia Social History Smoking Status: Former smoker Second Hand Exposure: No; Hx Alcohol Use: Yes Alcohol type: wine Hx Substance Use: No Preferred Language: Palauan Communication Ability: Effective Car Worker Required: No Beliefs That Will Affect Care: None Current Living Situation: Spouse current occupational status: retired current occupation: RETIRED RN Feels Safe at Home: Yes Assistive Devices: Cane, Denture - Upper and Glasses Physical Exam Constitutional: well developed and well nourished; no acute distress ENMT: external ear and nose normal, oropharynx normal Neck: trachea midline Respiratory: normal respiratory effort, lungs clear to auscultation Cardiovascular: Rate/Rhythm: regular rate and regular rhythm Gastrointestinal (Abdomen): normal bowel sounds, soft, nontender, no hepatosplenomegaly Musculoskeletal: Ankle: + limited ROM of ankle (Left dorsiflexion and plantarflexion), + ankle ROM with crepitation (Left ankle) and + joint line tenderness (ankle) (Left anterior and posterior ankle); no skin erythema and no ecchymosis Skin: no rashes, warm and dry Trauma: no evidence of skin trauma Neurologic: normal touch/pain/proprioception Psychiatric: A+Ox3, euthymic affect Speech: normal rate/rhythm/volume of speech Lymphatic: no cervical or axillary lymphadenopathy
[~2021-12-20 09:18] MED LIST changes: -ACETAMINOPHEN 500 MG TAB PO SCH; -CeleBREX 200 MG CAP PO SCH; -GABAPENTIN 300 MG CAP PO SCH; -ceFAZolin 1000MG 1,000 MG/7.5 ML SYR IV SCH
[2021-12-20] MEDS ORDERED: fentaNYL citrate 100 MCG/2 ML VIAL ONE (10:08)
[2021-12-20] MEDS ORDERED: MIDAZOLAM HCL 1 MG/ML 2ML VIAL ONE (10:08)
--- NOTE | 2021-12-20 10:11 | History & Physical Bridge Note ---
Date of Service December 20, 2021 History & Physical Bridge Note I have examined the patient, reviewed the History & Physical and in the interval since the performance of the History & Physical I have noted the following changes of clinical significance: no changes noted
[2021-12-20] MEDS ORDERED: ceFAZolin 330 MG/ML 1 GM VIAL ONE (10:27)
[2021-12-20] MEDS ORDERED: ceFAZolin 2,000 MG/15 ML IV PUSH IV ONE (10:48)
[2021-12-20] MEDS ORDERED: ePHEDrine sulfate 50 MG/ML AMP IV PRN (11:30)
[2021-12-20] MEDS ORDERED: ONDANSETRON INJ 2 MG/ML 2 ML VIAL IV PRN ×2 (11:30→15:02)
[2021-12-20] MEDS ORDERED: ATROPINE SULFATE 0.1 MG/ML 10ML SYR IV PRN (11:30)
[2021-12-20] MEDS ORDERED: fentaNYL citrate 100 MCG/2 ML VIAL IV PRN (11:30)
[2021-12-20] MEDS ORDERED: ROPIVACAINE 0.5% 5 MG/ML 30 ML VIAL ONE (11:49)
[2021-12-20] MEDS ORDERED: LIDOCAINE 2% 2 ML VIAL/AMP(20MG/ML) INFIL ONE (13:10)
[2021-12-20] MEDS ORDERED: ONDANSETRON INJ 2 MG/ML 2 ML VIAL ONE (13:10)
[2021-12-20] MEDS ORDERED: PROPOFOL IV EMULSION 10 MG/ML 20 ML VIAL IV ONE (13:10)
[2021-12-20] MEDS ORDERED: ePHEDrine sulfate 50 MG/ML SYR ONE (13:19)
--- NOTE | 2021-12-20 14:23 | Post Operative Brief Note ---
Immediate Post Op Note v1 Date of Surgery December 20, 2021 Pre & Post Diagnosis Operation Date: 12/20/21 13:05 Pre-Op Diagnosis: Left Ankle osteoarthritis, Left Ankle Achilles Contracture, left ankle pain Post-Op Diagnosis: Left Ankle osteoarthritis, Left Ankle Achilles Contracture, left ankle pain I identified the patient and participated in the time-out.: Yes Procedure Operation Date: 12/20/21 13:05 Actual Procedures p Left Ankle Fusion with Autograft(Left) - Zain Nesbitt DO s Left Distal Fibula Autograft Malcolm, Percutaneous Tendon Achilles Lengthening(Left) - Zain Nesbitt DO Surgeon Zain Nesbitt DO Baggageman Bryan Wiggins PA-C Estimated Blood Loss 10 Findings Consistent with Post-Op Diagnosis Anesthesia Type General Regional Complications none Disposition Accompanied Patient To Recovery: No Overlapping Procedure I was present for: the critical portions of procedure. I was immediately available: during the entire case.
[2021-12-20] MEDS ORDERED: PHENYLEPHRINE 100MCG/ML 5ML SYR ONE (14:46)
--- NOTE | 2021-12-20 15:01 | Fluoroscopy Report ---
FL ankle LT 2V CLINICAL HISTORY: LT ANKLE FUSION COMPARISON STUDY: None. FLUOROSCOPY TIME: 27 seconds. FINDINGS: 2 fluoroscopic spot images of the left ankle demonstrate tibiotalar fusion with 2 cannulate d screws. The hardware appears intact. Alignment appears anatomic. There is distal resection of the f ibula. IMPRESSION: Fluoroscopic assistance provided for left ankle tibiotalar fusion. ACT 112: Negative or not required by law. Electronically signed by: Martínez Paulino M.D. 12/20/2021 2:59 PM
[2021-12-20] MEDS ORDERED: ACETAMINOPHEN 325 MG TAB PO PRN (15:02)
[2021-12-20] MEDS ORDERED: oxyCODONE HCL IR 5 MG TAB (IMMEDIATE RELEASE) PO PRN (15:02)
[2021-12-20] MEDS ORDERED: HYDROmorphone INJ 0.5 MG/0.5 ML SYR IV PRN (15:02)
--- NOTE | 2021-12-20 15:45 | Anesthesiology Progress Note ---
Date of Service December 20, 2021 Anesthesia Post Procedure Vital Signs Vital Signs: Temp Pulse Pulse Resp BP Pulse Ox 12/20/21 15:20 98.8 F 85 20 137/84 94 12/20/21 15:10 82 21 143/70 H 100 12/20/21 15:00 86 23 146/76 H 100 12/20/21 14:53 99.1 F 88 18 135/81 99 12/20/21 10:21 97.7 F 75 18 171/88 H 97 Transfer of Care Handoff Completed per policy Notes Mental Status: alert / awake / arousable and participated in evaluation Patient Amnestic to Procedure: Yes Nausea / Vomiting: adequately controlled Pain: adequately controlled Airway Patency, RR, SpO2: stable & adequate BP & HR: stable & adequate Hydration State: stable & adequate Anesthetic Complications: no major complications apparent and Pt Satisfied with anesthetic care
[2021-12-20] MEDS ORDERED: NALOXONE HCL 0.4 MG/1 ML VIAL/CARP IV PRN (17:28)
[2021-12-20] MEDS ORDERED: diphenhydrAMINE 50 MG/ML VIAL IV PRN (17:28)
[2021-12-20] MEDS ORDERED: bisacodyL 10 MG SUPP PR PRN (17:28)
[2021-12-20] MEDS ORDERED: MAGNESIUM HYDROXIDE SUSP 30 ML UDC PO PRN (17:28)
[2021-12-20] MEDS: SODIUM CHLORIDE 0.9% 1000ML 1,000 ML IV SCH (18:31)
[2021-12-20] MEDS: ASPIRIN 81 MG ECTAB PO SCH (21:08)
[2021-12-20] MEDS: SENNA 8.6 MG TAB PO SCH (21:09)
[2021-12-20] MEDS: DOCUSATE SODIUM 100 MG CAP PO SCH (21:09)
[2021-12-20] MEDS: ACETAMINOPHEN 500 MG TAB PO SCH (21:09)
[2021-12-20] MEDS: PRAVASTATIN SOD 20 MG TAB PO SCH (21:51)
[2021-12-20] MEDS: LOSARTAN POTASSIUM 50 MG TAB PO SCH (21:51)
[2021-12-20] MEDS: ceFAZolin 1000MG 1,000 MG/7.5 ML SYR IV SCH (21:52)
--- NOTE | 2021-12-20 23:22 | Operative Report (OR) ---
DATE OF PROCEDURE: 12/20/2021. PREOPERATIVE DIAGNOSES: 1. Left ankle severe osteoarthritis. 2. Left ankle Achilles tendon contracture. 3. Valgus deformity of the ankle. 4. Left ankle pain. POSTOPERATIVE DIAGNOSES: 1. Left ankle severe osteoarthritis. 2. Left ankle Achilles tendon contracture. 3. Valgus deformity of the ankle. 4. Left ankle pain. PROCEDURE: 1. Left ankle fusion with application of autograft. 2. Left lateral malleolus autograft harvest. 3. Percutaneous tendo-Achilles lengthening procedure. SURGEON: Zain Nesbitt DO LANDING MAN: Bryan Wiggins PA-C, who was present for patient positioning, sterile prep and drape, management of retractors and instruments. He was present through the critical portions of the case including wound closure, application of sterile dressing and transport of the patient to recovery. ANESTHESIA: General, regional. SPECIMENS: None. DRAINS: None. COMPLICATIONS: None. BLOOD LOSS: 10 mL. PERTINENT HISTORY: This is an 86-year-old woman who had progressive chronic and worsening left ankle pain with worsening deformity over the last 8-10 years. Finally, over the last 1 to 2 years, she has had increasing debilitating pain, which required use of an assistive device. She attempted use of an ankle brace for many years. She had previous steroid injections, anti-inflammatories, rest, modification of activities, physical therapy, and physician-directed exercise program. The patient had radiographs, which demonstrate severe osteoarthritis with complete loss of joint space, marginal osteophytes, subchondral sclerosis, subchondral cysts, and valgus deformity. The patient was scheduled for surgery as indicated. All potential risks, benefits, complications, alternatives, rehab potential for incomplete relief of symptoms, need for further surgery, DVT, PE, , persistent pain, swelling, scarring, weakness, neurovascular injury, wound complications, hardware failure, nonunion, malunion, and bone fracture were discussed with the patient and the patient decided to proceed with the procedure as indicated. DESCRIPTION OF PROCEDURE: The patient was taken to the Operating Room after induction of anesthetic, the left lower extremity was prepped and draped in the usual sterile fashion. Incision was made over the lateral aspect of the ankle starting from the distal third of the fibula to the tip of the fibula and extending down towards the base of the fourth metatarsal. Dissection was carried down to the subcutaneous tissues. All bleeders were appropriately cauterized. The distal fibula was exposed subperiosteally. It was then osteotomized at the level of the tibial plafond going from lateral proximal to medial distal. The bone was then harvested to be later used as bone graft. Dissection was carried down more distally to the level of the sinus tarsi. The fat of the sinus tarsi was elevated to give access to the lateral side of the talus. A synovectomy was performed of the ankle joint and all the osteophytes that were found were removed. Once this was completed, a laminar workforce development vice president was placed in the ankle joint itself. Using a series of rongeur and curettes, all of the remaining subchondral bone on the tibia plafond and the dome of the talus was removed. The removal was performed so that when the prepared surfaces were reduced, the ankle would be reduced into alignment which gave neutral dorsiflexion and plantar flexion, 5 degrees of residual calcaneal valgus. Rotation was judged by aligning the midportion of the patella to the midportion of the ankle to the second web space. After completion of removal of the subchondral bone, the joint surfaces were feathered with an 1/4 inch osteotome and drill holes to encourage bony ingrowth. The wounds were the irrigated. The talus was then reduced into the ankle mortise. Two guide wires from 7.3 cannulated screw systems were then introduced from the inferior aspect of the lateral portion of the talus and driven proximally into the distal tibia. Radiographs were performed which showed adequate pin placement. The pins were the overdrilled and then fixed with two 7.3 cancellous lag screws. Rigid fixation was obtained. The guide wires were then removed. The incisions were then copiously irrigated until clear. A Hemovac drain was placed on the lateral aspect of the wound. Subcutaneous tissues were closed Vicryl. Skin was closed with fabio. Bulky compression dressing was applied and splints applied. Tourniquet deflated. The patient was taken to recovery where they arrived in satisfactory condition. Job ID: [id number] [facility]
[2021-12-21] MEDS: oxyCODONE HCL IR 5 MG TAB (IMMEDIATE RELEASE) PO PRN ×3 (02:12→12:08)
[2021-12-21] MEDS: SODIUM CHLORIDE 0.9% 1000ML 1,000 ML IV SCH (04:08)
[2021-12-21] MEDS: LEVOTHYROXINE SODIUM 112 MCG TABLET PO SCH (06:20)
[2021-12-21] MEDS: ceFAZolin 1000MG 1,000 MG/7.5 ML SYR IV SCH (06:20)
[2021-12-21] MEDS: ACETAMINOPHEN 500 MG TAB PO SCH ×3 (06:20→21:59)
[2021-12-21] MEDS: HYDROmorphone INJ 0.5 MG/0.5 ML SYR IV PRN ×2 (07:04→17:19)
--- NOTE | 2021-12-21 08:31 | Orthopedic Progress Note ---
Date of Service December 21, 2021 Assessment & Plan (1) Osteoarthritis of ankle, left: Plan: Postop day #1 1. Left ankle fusion with application of autograft. 2. Left lateral malleolus autograft harvest. 3. Percutaneous tendo-Achilles lengthening procedure. -PT/OT: nonweightbearing left lower extremity -DVT prophylaxis: Aspirin 81 mg twice daily -Pain management as written. May give her a dose of Toradol pending a.m. labs. -A.m. labs are pending -Discharge planning: Plan on discharge home when stable. Possible discharge tomorrow once her pain is better controlled. Admission and Anticipated Discharge Date Admission Date: December 20, 2021 Subjective Patient is postop day 1 left ankle fusion. She is resting in bed currently. Lalo carroll is having a considerable amount of pain since the block is worn off. In addition to her pain she does have some nausea as well. Denies chest pain, shortness of breath, fever/chills, vomiting/diarrhea. Review of Systems Review of Systems: All systems reviewed & are unremarkable except as noted in Subjective Physical Exam Physical Exam: Left ankle: Splint/dressing is clean, dry, intact. No calf tenderness. Toes are mobile. Distally neurovascular status and sensation intact. Constitutional: WD/WN, vitals as above Results & Data ([facility]) Vital Signs (Past 12 Hours) Vital Signs Temp Pulse Resp BP Pulse Ox 12/21/21 07:17 37.2 C 84 24 107/56 L 92 12/21/21 03:46 36.9 C 86 17 114/71 94 12/20/21 21:06 36.9 C 83 17 152/80 H 97
[2021-12-21] MEDS: ONDANSETRON INJ 2 MG/ML 2 ML VIAL IV PRN ×2 (08:37→14:47)
[2021-12-21] MEDS: ASPIRIN 81 MG ECTAB PO SCH ×2 (08:45→20:08)
[2021-12-21 09:00] LABS: Basophils # (auto) 0.02 K/uL (0-0.2); Basophils % (auto) 0.2 %; Eosinophils # (auto) 0.06 K/uL (0-0.5); Eosinophils % (auto) 0.6 %; Hematocrit (blood only) 34.7 % (37-47); Hemoglobin 11.5 g/dL (12.0-16.0); Immature Granulocytes # (auto) 0.04 K/uL (0.00-0.02); Immature Granulocytes % (auto) 0.4 %; Lymphocytes # (auto) 1.53 K/uL (1.2-3.4); Lymphocytes % (auto) 15.9 %; Mean Corpuscular Hemoglobin 28.3 pg (25-34); Mean Corpuscular Hgb Conc 33.1 g/dL (32-36); Mean Corpuscular Volume 85.3 fL (80-100); Monocytes # (auto) 1.61 K/uL (0.11-0.59); Monocytes % (auto) 16.7 %; Neutrophils # (auto) 6.37 K/uL (1.4-6.5); Neutrophils % (auto) 66.2 %; Platelet Count 245 K/uL (130-400); RDW Coefficient of Variation 13.5 % (11.5-14.5); Red Blood Count 4.07 M/uL (4.2-5.4); White Blood Count 9.63 K/uL (4.8-10.8)
[2021-12-21] MEDS ORDERED: NON-FORMULARY MEDICATION (Multivitamin Tablet) PO SCH (09:00)
[2021-12-21] MEDS: METOCLOPRAMIDE HCL INJ 5 MG/ML 2 ML VIAL IV PRN ×2 (09:12→17:19)
[2021-12-21] MEDS: CHOLECALCIFEROL 1,000 UNITS 25 MCG TAB PO SCH (09:13)
[2021-12-21] MEDS: DOCUSATE SODIUM 100 MG CAP PO SCH ×2 (09:13→20:08)
[2021-12-21] MEDS: MULTIVITAMIN TAB PO SCH (09:13)
[2021-12-21 09:39] LABS: BUN Creatinine Ratio 15.1 (10-20); Calcium 8.5 mg/dl (8.5-10.1); Creatinine Clr Calc Pharmacy 71.9 ml/min; Est GFR (African American) 100.3 ml/min; Est GFR (Non-African American) 86.6 ml/min; Potassium 3.9 mmol/L (3.5-5.1)
[2021-12-21] MEDS ORDERED: KETOROLAC TROMETHAMINE 15 MG/ML VIAL IV ONE (09:48)
[2021-12-21] MEDS: traMADol HCL 50 MG TABLET PO PRN ×2 (15:40→23:02)
[2021-12-21] MEDS: LOSARTAN POTASSIUM 50 MG TAB PO SCH (20:08)
[2021-12-21] MEDS: SENNA 8.6 MG TAB PO SCH (20:08)
[2021-12-21] MEDS: PRAVASTATIN SOD 20 MG TAB PO SCH (20:08)
[2021-12-22] MEDS: HYDROmorphone INJ 0.5 MG/0.5 ML SYR IV PRN ×3 (01:07→23:04)
[2021-12-22] MEDS: ACETAMINOPHEN 500 MG TAB PO SCH (05:44)
[2021-12-22] MEDS: LEVOTHYROXINE SODIUM 112 MCG TABLET PO SCH (05:45)
[2021-12-22] MEDS: traMADol HCL 50 MG TABLET PO PRN (06:04)
[2021-12-22] MEDS: MULTIVITAMIN TAB PO SCH (07:25)
[2021-12-22] MEDS: ASPIRIN 81 MG ECTAB PO SCH ×2 (07:25→20:36)
[2021-12-22] MEDS: CHOLECALCIFEROL 1,000 UNITS 25 MCG TAB PO SCH (07:25)
[2021-12-22] MEDS: DOCUSATE SODIUM 100 MG CAP PO SCH ×2 (07:26→20:36)
[2021-12-22] MEDS ORDERED: KETOROLAC TROMETHAMINE 15 MG/ML VIAL IV ONE (08:04)
--- NOTE | 2021-12-22 08:09 | Orthopedic Progress Note ---
Date of Service December 22, 2021 Assessment & Plan (1) Osteoarthritis of ankle, left: Plan: Postop day #2 1. Left ankle fusion with application of autograft. 2. Left lateral malleolus autograft harvest. 3. Percutaneous tendo-Achilles lengthening procedure. -PT/OT: nonweightbearing left lower extremity -DVT prophylaxis: Aspirin 81 mg twice daily -Pain management: Switched oxycodone to tramadol due to significant nausea with oxycodone. Tramadol is not helping. Has had [place] in the past and has tolerated per patient. Will switch to [place]. Dose of Toradol yesterday did help some, will give one more dose today. -Discharge planning: PT recommending inpatient rehab/SNF. Case management consult placed. Will require 3 midnight stay. Admission and Anticipated Discharge Date Admission Date: December 21, 2021 Subjective Patient is postop day 2 left ankle fusion. She is resting in bed currently. Patient is having persistent pain. Switched to tramadol as she has had before, was getting very nauseous with the oxycodone. States the tramadol is helping very little. Has had [place] in the past and tolerated. Nausea has improved today.. Denies chest pain, shortness of breath, fever/chills, vomiting/diarrhea. Review of Systems Review of Systems: All systems reviewed & are unremarkable except as noted in Subjective Physical Exam Physical Exam: Left ankle: Splint/dressing is clean, dry, intact. No calf tenderness. Toes are mobile. Distally neurovascular status and sensation intact. Constitutional: WD/WN, vitals as above Results & Data ([facility]) Vital Signs (Past 12 Hours) Vital Signs Temp Pulse Resp BP Pulse Ox 12/22/21 07:02 37.1 C 89 16 146/77 H 93 12/21/21 22:12 38.3 C H 102 H 18 124/70 95
[2021-12-22] MEDS: LOSARTAN POTASSIUM 50 MG TAB PO SCH (20:36)
[2021-12-22] MEDS: SENNA 8.6 MG TAB PO SCH (20:36)
[2021-12-22] MEDS: PRAVASTATIN SOD 20 MG TAB PO SCH (20:36)
[2021-12-22] MEDS: HYDROCODONE/ACETAMOPHEN 5/325MG TAB PO PRN (22:04)
[2021-12-23] MEDS: LEVOTHYROXINE SODIUM 112 MCG TABLET PO SCH (05:49)
[2021-12-23] MEDS: HYDROmorphone INJ 0.5 MG/0.5 ML SYR IV PRN ×3 (05:49→21:43)
[2021-12-23] MEDS: MULTIVITAMIN TAB PO SCH (07:37)
[2021-12-23] MEDS: DOCUSATE SODIUM 100 MG CAP PO SCH ×2 (07:37→19:49)
[2021-12-23] MEDS: CHOLECALCIFEROL 1,000 UNITS 25 MCG TAB PO SCH (07:37)
[2021-12-23] MEDS: ASPIRIN 81 MG ECTAB PO SCH ×2 (07:37→19:48)
[2021-12-23] MEDS: HYDROCODONE/ACETAMOPHEN 5/325MG TAB PO PRN (10:58)
[2021-12-23] MEDS: ONDANSETRON INJ 2 MG/ML 2 ML VIAL IV PRN (12:28)
--- NOTE | 2021-12-23 13:52 | Orthopedic Progress Note ---
Date of Service December 23, 2021 Assessment & Plan (1) Osteoarthritis of ankle, left: Plan: Postop day #3 1. Left ankle fusion with application of autograft. 2. Left lateral malleolus autograft harvest. 3. Percutaneous tendo-Achilles lengthening procedure. -PT/OT: nonweightbearing left lower extremity -DVT prophylaxis: Aspirin 81 mg twice daily -Pain management: Continue oral hydrocodone/Tylenol. We discussed transition to oral Tylenol and possibly oral Ultram when pain has improved. -Discharge planning: PT recommending inpatient rehab/SNF. Referrals made to [facility] and [facility]. [facility] may have a bed available tomorrow to accept the patient. Admission and Anticipated Discharge Date Admission Date: December 21, 2021 Subjective Patient is postop day 3 left ankle fusion. States she tried some of the pain medicine but was having nausea. She was originally on oxycodone but was switched this weekend to hydrocodone/Tylenol. Overall, the pain is controlled in the ankle. No new complaints. Denies chest pain, shortness of breath, fever/chills, vomiting/diarrhea. Physical Exam Constitutional: well developed and well nourished; no acute distress ENMT: external ear and nose normal, oropharynx normal Neck: trachea midline Respiratory: normal respiratory effort, lungs clear to auscultation Cardiovascular: Rate/Rhythm: regular rate and regular rhythm Gastrointestinal (Abdomen): normal bowel sounds, soft, nontender, no hepatosplenomegaly Musculoskeletal: Ankle: + surgical incision (Left ankle splint C/D/I) and + limited ROM of ankle (Left ankle fusion in splint); no skin erythema and no ecchymosis Skin: no rashes, warm and dry Trauma: no evidence of skin trauma Neurologic: normal touch/pain/proprioception Psychiatric: A+Ox3, euthymic affect Speech: normal rate/rhythm/volume of speech Lymphatic: no cervical or axillary lymphadenopathy Results & Data ([facility]) Vital Signs (Past 12 Hours) Vital Signs Temp Pulse Pulse Resp BP Pulse Ox 12/23/21 12:00 36.8 C 82 18 130/77 96 12/23/21 07:45 36.8 C 82 16 147/84 H 96 12/23/21 07:11 36.8 C 89 16 142/73 H 97
[2021-12-23] MEDS: LOSARTAN POTASSIUM 50 MG TAB PO SCH (19:48)
[2021-12-23] MEDS: SENNA 8.6 MG TAB PO SCH (19:49)
[2021-12-23] MEDS: PRAVASTATIN SOD 20 MG TAB PO SCH (19:49)
[2021-12-23] MEDS ORDERED: KETOROLAC TROMETHAMINE 15 MG/ML VIAL IV ONE (22:08)
[2021-12-24] MEDS ORDERED: KETOROLAC TROMETHAMINE 15 MG/ML VIAL ONE (02:10)
[2021-12-24] MEDS: LEVOTHYROXINE SODIUM 112 MCG TABLET PO SCH (05:46)
[2021-12-24] MEDS: MULTIVITAMIN TAB PO SCH (08:00)
[2021-12-24] MEDS: CHOLECALCIFEROL 1,000 UNITS 25 MCG TAB PO SCH (08:00)
[2021-12-24] MEDS: ASPIRIN 81 MG ECTAB PO SCH (08:00)
[2021-12-24] MEDS: DOCUSATE SODIUM 100 MG CAP PO SCH (08:00)
--- NOTE | 2021-12-24 09:31 | Orthopedic Progress Note ---
Date of Service December 24, 2021 Assessment & Plan (1) Osteoarthritis of ankle, left: Plan: Postop day #4 1. Left ankle fusion with application of autograft. 2. Left lateral malleolus autograft harvest. 3. Percutaneous tendo-Achilles lengthening procedure. -PT/OT: nonweightbearing left lower extremity -DVT prophylaxis: Aspirin 81 mg twice daily -Pain management: Continue oral hydrocodone/Tylenol. We discussed transition to oral Tylenol and possibly oral Ultram when pain has improved. -Discharge planning: PT recommending inpatient rehab/SNF. Referrals made to [facility] and [facility]. patient can be d/c today Admission and Anticipated Discharge Date Admission Date: December 21, 2021 Subjective Patient is postop day 4 s/p left ankle fusion Review of Systems Constitutional: no fever and no chills Respiratory: no cough and no dyspnea Cardiovascular: no chest pain, no dyspnea and no orthopnea Gastrointestinal: no abdominal pain, no nausea and no vomiting Physical Exam Physical Exam: Vital Signs Temp 36.6 C 12/24/21 07:03 Pulse 82 12/24/21 07:03 Resp 16 12/24/21 07:03 BP 169/81 H 12/24/21 07:03 Pulse Ox 98 12/24/21 07:03 Intake & Output 12/23/21 12/24/21 12/24/21 18:59 06:59 18:59 Intake Total 150 / 390 240 / 390 Output Total Balance 150 / 389 239 / 389 Intake: Oral 150 / 390 240 / 390 Output: # Bowel Movement s Other: # Unmeasured Voi ds 1 1 Musculoskeletal: Left Ankle:+ surgical incision (Left ankle splint C/D/I) and + limited ROM of ankle (Left ankle fusion in splint); no skin erythema and no ecchymosis Results & Data ([facility]) Vital Signs (Past 12 Hours) Vital Signs Temp Pulse Pulse Resp BP BP Pulse Ox 12/24/21 07:03 36.6 C 82 16 169/81 H 98 12/23/21 22:13 37.1 C 89 18 145/83 H 95
[2021-12-24] MEDS: HYDROCODONE/ACETAMOPHEN 5/325MG TAB PO PRN (12:20)
--- NOTE | 2021-12-25 10:53 | Discharge Summary ---
Date of Service December 25, 2021 Admission HPI Per Admitting Provider This is a patient with a long history of left ankle pain. She has been treated conservatively for left ankle osteoarthritis. She had failed all conservative management. She is now being set up for surgical treatment. Admission Exam Per Admitting Provider Physical Exam Constitutional: well developed and well nourished; no acute distress ENMT: external ear and nose normal, oropharynx normal Neck: trachea midline Respiratory: normal respiratory effort, lungs clear to auscultation Cardiovascular: Rate/Rhythm: regular rate and regular rhythm Gastrointestinal (Abdomen): normal bowel sounds, soft, nontender, no hepatosplenomegaly Musculoskeletal: Ankle: + limited ROM of ankle (Left dorsiflexion and plant arflexion), + ankle ROM with crepitation (Left ankle) and + joint line tenderness (ankle) (Left anterior and posterior ankle); no skin erythema and no ecchymosis Skin: no rashes, warm and dry Trauma: no evidence of skin trauma Neurologic: normal touch/pain/proprioception Psychiatric: A+Ox3, euthymic affect Speech: normal rate/rhythm/volume of speech Lymphatic: no cervical or axillary lymphadenopathy Principal Diagnosis Left ankle osteoarthritis Discharge Data Allergies Allergy/AdvReac Type Severity Reaction Status Date / Time No Known Allergies Allergy Verified 12/20/21 10:20 Procedures Performed Operation Date: 12/20/21 13:05 Actual Procedures p Left Ankle Fusion with Autograft(Left) - Zain Nesbitt DO s Left Distal Tibula Autograft [place], Percutaneous Tendon Achilles Lengthening(Left) - Zain Nesbitt DO Ordered Studies 12/20/21 05:00 US - OR guided needle placemen Routine 12/20/21 13:05 FL ankle LT 2V Routine Hospital Course (1) Osteoarthritis of ankle, left: Patient was admitted on the above-noted date and had the above-noted surgery performed which she tolerated well. On her first postoperative day she was complaining of moderate pain since the block had worn off; she was also having some nausea. She denied chest pain shortness of breath or lightheadedness. Dressings were clean dry and intact. Denied calf tenderness. Toes are mobile. She was started on PT and OT protocols nonweightbearing left lower extremity. Continued on DVT prophylaxis and pain management dose of Toradol was added to her pain regimen. By her second postoperative day she was resting in bed at the time. Continued to have persistent pain. Switched to tramadol as she had had before secondary to getting nauseous with the oxycodone. She felt that the tramadol was helping very little. Since remained intact and dry. Toes are mobile. Pain regimen was switched to [place]. Another dose of Toradol was also given. It was felt that she would need a rehab facility post discharge of which senior living facilities were investigated by case management. The patient then made her choice of senior living facility and required a 3-day stay. The rest of her stay was essentially uneventful and she was thusly transferred to senior living facility for further care. Total Time Total Time Spent Total Time Spent (In Minutes): 10 Discharge Plan Discharge Items Patient Disposition: Transfer [facility] Reason For Visit: Left Ankle Achilles Contracture, Left Ankle Arthri Discharge Diagnosis: Left Ankle osteoarthritis, Left Ankle Achilles Contracture, left ankle pain Activity: Per Instructions section Weightbearing: Left non-weightbearing Weightbearing Comment: non weightbearing with walker Non-emergency contact: Surgeon Call non-emergency contact if: your pain is not controlled, your pain is worsening, your temperature is above 101.5, your wound has increased redness and your wound has increased drainage Follow-up/Referrals: Zain Nesbitt DO [Surgeon] - (Follow-up with Dr. Nesbitt in 10 to 14 days from the day of surgery.) Sandra Schwartz PA-C [Primary Care Provider] - Diet: Regular Addtl Attending Provider Instructions: ACTIVITY RECOMMENDATIONS: Limitations: No weight bearing to affected limb at all times. SPECIAL CARE INSTRUCTIONS: * Some drainage onto the dressing is normal and is no cause for alarm. * Some swelling is natural especially after walking. * When resting, keep your foot elevated above the level of your heart. * Call [facility] if you notice: -Increased drainage -Fever over 101 degrees F -Severe constant pain BANDAGE: * Leave bandage/cast in place unless otherwise directed. * Keep bandage/cast dry at all times. FOLLOW UP VISIT WITH DR. NESBITT If appointment is not already scheduled: Please call [facility] after you get home today to schedule a follow-up appointment for [address] Nesbitt at . Pending Studies at Discharge: No Stand-Alone Forms: Anesthesia/Sedation, Adult, [facility] Skilled Items Patient informed of condition?: Yes DNR: No Discharge Level of Care: Acute rehab Communicable Disease: No Discharge Prognosis: Stable Lines: None Urinary Catheter: No Medications and DC Order Prescriptions: New oxycodone-acetaminophen [Percocet] 5-325 mg tablet 1 tab PO Q4H PRN (Reason: pain) Qty: 18 RF: 0 ibuprofen 400 mg tablet 400 mg PO .qd PRN (Reason: pain) Qty: 30 RF: 0 Continued multivitamin Tablet 1 tab PO QAM RF: 0 cholecalciferol (vitamin D3) [Vitamin D3] 50 mcg (2,000 unit) Capsule 50 mcg PO QAM RF: 0 levothyroxine 112 mcg Capsule 112 mcg PO QAM RF: 0 pravastatin 20 mg Tablet 20 mg PO HS RF: 0 losartan 100 mg Tablet 100 mg PO HS RF: 0 Discontinued ibuprofen 200 mg Tablet 200 mg PO Q6H PRN (Reason: Pain) RF: 0 Fish Oil Capsule 1,000 mg PO QAM RF: 0 Discharge Orders: Discharge Order (Routine); Ordered 12/24/21 Ordered By: Rc Locke/Other Patient Handouts: DVT Post Op Prevention Admission Data Admit Date/Time: 12/21/21 16:54 Attending Provider: Zain Nesbitt Admit Provider: Zain Nesbitt Primary Care Provider: Sandra Schwartz Other Interventions: Discharge Summary Assessment (RN) Last Done: 12/24/21 12:46
== END 2021-12-24 13:34 | DRG 494 ==
LOC: 3N 09:18 → ASU 09:18